=== PATIENT | male | born 1985 | race African-American/Black ===

== ENCOUNTER 2017-04-04 11:19 | Emergency (ER) | payer SELFPAY ==
[~2017-04-04] VITALS: Ht 172.7 cm; Wt 99.0 kg
[2017-04-04] MEDS ORDERED: PEN-VEE K,VEET500 MG PO (12:50)
[2017-04-04] MEDS ORDERED: NORCO 5/3251 TABLET PO (12:50)
[2017-04-04 13:17] VITALS: BP 117/69
== END 2017-04-04 13:19 | disposition home or self-care (01) ==
LOC: EME 11:19
DX: K08.89 Other specified disorders of teeth and supporting structures (principal); F17.200 Nicotine dependence, unspecified, uncomplicated
CPT/HCPCS: 99281; 99284